=== PATIENT | male | born 1935 | race Caucasian/White ===

== ENCOUNTER 2019-10-23 20:35 | Inpatient (IN) | payer MEDICARE, MEDICAID ==
[~2019-10-23] VITALS: Ht 172.7 cm; Wt 81.3 kg
[~2019-10-23 20:35] MED LIST: ACET1TAB64 PO; ALBU2.5V11 NEB; ALBU90AE INH; ALEVE; ASPI-515 PO; ASPI-650 PO; ATOR10TA9 PO; CLOP75TA PO; CLOP75TA52 PO; ENAL2.5T PO; FLUTICASONE; FURO20TA3 PO; LOVA20TA2 PO; OXYcodone/APAP 5/325MG PO; PROAIR; TIOT18CA INH
--- NOTE | 2019-10-23 20:47 | NUR ---
Note undone in EDM - 10/23/19 at 2104 by [email or web address] pt REJI tx from [facility] as stemi alert. presented at 1830 for 05/01 substernal cp. nitro x2 relieved pain. 1 additional per ems. fluids infusing. Dr. Ponce at bedside for eval on arrival of pt. plan for labs/ct/ekg at bedside. pt aware and agrees. pt denies pain at the moment. exp wheezes throughout. 84% on RA on arrival to initial hosptial. 2.5 lnc at moment. NAD. awaiting lab results.
[2019-10-23 20:58] LABS: MEAN CORPUSCULAR HEMOGLOBIN 28.9 pg (27.5-34.5); MEAN CORPUSCULAR HGB CONC 32.7 g/dL (33.2-36.2); MEAN CORPUSCULAR VOLUME 88.5 fL (81-97); MEAN PLATELET VOLUME 7.6 fL (7.4-10.4); PLATELET COUNT 132 x10^3/uL (130-400); RED BLOOD COUNT 3.71 x10^6/uL (4.38-5.82); RED CELL DISTRIBUTION WIDTH 17.2 % (9.4-14.8)
--- NOTE | 2019-10-23 21:03 | NUR ---
pt ERJI yeager from [facility] as stemi alert. presented at 1830 for 05/01 substernal cp. nitro x2 relieved pain. 1 additional per ems. fluids infusing. Dr. Ponce at bedside for eval on arrival of pt. plan for labs/ct/ekg at bedside. pt aware and agrees. pt denies pain at the moment. exp wheezes throughout. 84% on RA on arrival to initial hosptial. 2.5 lnc at moment. NAD. awaiting lab results.
--- NOTE | 2019-10-23 21:05 | NUR ---
Pt returned from CT.
[2019-10-23 21:10] LABS: ALBUMIN 2.5 g/dL (3.4-5.0); ANION GAP 5 mmol/L (5-15); CALCIUM 8.3 mg/dL (8.5-10.1); CHLORIDE 108 mmol/L (98-107); CREATININE 1.75 mg/dL (0.7-1.3)
[2019-10-23 21:14] LABS: TROPONIN I < 0.015 ng/mL (0.000-0.045)
[2019-10-23] MEDS ORDERED: PRED10TA14 PO (21:42)
[2019-10-23 21:45] LABS: BASOPHILS # (AUTO) 0.01 x10^3/uL (0-0.1); BASOPHILS % (AUTO) 0 % (0-1); EOSINOPHILS # (AUTO) 0.09 x10^3/uL (0-0.4); EOSINOPHILS % (AUTO) 1 % (1-7); LYMPHOCYTES # (AUTO) 0.88 x10^3/uL (1-3.4); LYMPHOCYTES % (AUTO) 9 % (22-44); MD SCAN; MONOCYTES # (AUTO) 0.53 x10^3/uL (0.2-0.8); MONOCYTES % (AUTO) 5 % (2-9); NEUTROPHILS % (AUTO) 85 % (42-75)
[2019-10-23] MEDS ORDERED: OMNIPAQUE 350 MG/ML, 100ML BOTTLE ONE (21:56)
[2019-10-23] MEDS ORDERED: ALBUTEROL SULFATE 2.5 MG/3 ML NPPB SCH (22:00)
--- NOTE | 2019-10-23 22:05 | NUR ---
pt c/o SOB and asking for neb. notified . pt clear to eat, given water and turkey sandwhich. vss.
[2019-10-23] MEDS ORDERED: ALBUTEROL SULFATE 2.5 MG/3 ML ONE (22:07)
[2019-10-23] MEDS ORDERED: AZITHROMYCIN 500 MG TABLET PO ONE (22:30)
[2019-10-23] MEDS ORDERED: CEFTRIAXONE PMX 1GM/50ML 50 ML IVPB ONE (22:30)
[2019-10-23 23:00] VITALS: BP 123/62
[2019-10-23] MEDS ORDERED: ACETAMINOPHEN 325 MG TABLET PO PRN (23:00)
[2019-10-23] MEDS ORDERED: LABETALOL 5 MG/ML SYR. (IV ONLY) IVPush PRN (23:00)
[2019-10-23] MEDS ORDERED: NITROGLYCERIN 0.4 MG BOTTLE (25 TABS) SL PRN (23:00)
[2019-10-23] MEDS ORDERED: ONDANSETRON 2MG/ML, 2ML IVPush PRN (23:00)
[2019-10-23] MEDS ORDERED: morphine SULFATE 10 MG/ML, 1ML IVPush PRN (23:00)
[2019-10-23] MEDS: CEFTRIAXONE PMX 1GM/50ML 50 ML IV SCH (23:59)
[2019-10-23] MEDS: AZITHROMYCIN 500 MG in SODIUM CHLORIDE 0.9% 250 ML IV SCH (23:59)
[2019-10-24] MEDS ORDERED: HEPARIN 5,000 UNITS/ML, 1ML ONE (00:08)
[2019-10-24] MEDS ORDERED: ACETAMINOPHEN 325 MG TABLET ONE (00:09)
[2019-10-24] MEDS: HEPARIN 5,000 UNITS/ML, 1ML SQ SCH ×3 (00:11→18:03)
[2019-10-24 01:32] VITALS: BP 125/64
[2019-10-24 04:34] LABS: MEAN CORPUSCULAR HEMOGLOBIN 29.6 pg (27.5-34.5); MEAN CORPUSCULAR HGB CONC 33.3 g/dL (33.2-36.2); MEAN CORPUSCULAR VOLUME 88.9 fL (81-97); MEAN PLATELET VOLUME 7.9 fL (7.4-10.4); PLATELET COUNT 127 x10^3/uL (130-400); RED BLOOD COUNT 3.54 x10^6/uL (4.38-5.82); RED CELL DISTRIBUTION WIDTH 17.3 % (9.4-14.8)
[2019-10-24 04:46] LABS: CHLORIDE 109 mmol/L (98-107)
[2019-10-24 04:56] LABS: ANION GAP 6 mmol/L (5-15); CALCIUM 8.2 mg/dL (8.5-10.1); CHOL/HDL RATIO 2.8; CHOLESTEROL, TOTAL 108 mg/dL (140-239); CREATININE 1.69 mg/dL (0.7-1.3); HDL CHOL % 35 % (26-37); HDL CHOLESTEROL (DIRECT) 38 mg/dL (40-60); LDL CHOLESTEROL,CALCULATED 55 mg/dL (54-169); LDL/HDL RATIO 1.4 (0.5-3.0); TRIGLYCERIDES 75 mg/dL (50-200); TROPONIN I < 0.015 ng/mL (0.000-0.045); VLDL CHOLESTEROL 15 mg/dL (0-25)
[2019-10-24 06:00] LABS: BASOPHILS # (AUTO) 0.01 x10^3/uL (0-0.1); BASOPHILS % (AUTO) 0 % (0-1); EOSINOPHILS # (AUTO) 0.27 x10^3/uL (0-0.4); EOSINOPHILS % (AUTO) 3 % (1-7); LYMPHOCYTES # (AUTO) 1.26 x10^3/uL (1-3.4); LYMPHOCYTES % (AUTO) 13 % (22-44); MD SCAN; MONOCYTES # (AUTO) 0.65 x10^3/uL (0.2-0.8); MONOCYTES % (AUTO) 7 % (2-9); NEUTROPHILS # (AUTO) 7.29 x10^3/uL (1.8-6.8); NEUTROPHILS % (AUTO) 77 % (42-75)
[2019-10-24] MEDS: ALBUTEROL/IPRATROPIUM 2.5MG/0.5MG, 3 ML NPPB SCH ×5 (06:55→23:27)
[2019-10-24] MEDS: SENNA/DOCUSATE TABLET PO SCH (09:00)
[2019-10-24] MEDS ORDERED: ENALAPRIL 2.5MG TABLET PO SCH (09:00)
[2019-10-24] MEDS: SODIUM CHLORIDE 0.9% 1,000 ML IV SCH ×2 (09:30→18:07)
[2019-10-24 09:33] VITALS: BP 126/61
[2019-10-24] MEDS: ASPIRIN 81 MG TABLET EC PO SCH (10:16)
[2019-10-24] MEDS: CLOPIDOGREL 75 MG TABLET PO SCH (10:16)
[2019-10-24] MEDS: methylPREDNISolone SOD SUCC 125 MG/2 ML IVPush SCH ×2 (10:47→18:02)
[2019-10-24 11:05] LABS: TROPONIN I < 0.015 ng/mL (0.000-0.045)
[2019-10-24] MEDS: GUAIFENESIN 200 MG TABLET PO SCH ×3 (12:40→21:59)
[2019-10-24 16:29] VITALS: BP 126/62
[2019-10-24 16:50] LABS: RAPID INFLUENZA A Negative (Negative); RAPID INFLUENZA B Negative (Negative)
[2019-10-24 19:35] VITALS: BP 123/56
[2019-10-24] MEDS: BRIMONIDINE TART. OPHTH 0.2%, 5ML LEFTEYE SCH (21:56)
[2019-10-24] MEDS: LATANOPROST OPHTH 0.005%, 2.5ML LEFTEYE SCH (21:56)
[2019-10-24] MEDS: LOVASTATIN 20 MG TABLET PO SCH (21:59)
[2019-10-25] MEDS: CEFTRIAXONE PMX 1GM/50ML 50 ML IV SCH ×2 (00:04→22:42)
[2019-10-25] MEDS: methylPREDNISolone SOD SUCC 125 MG/2 ML IVPush SCH ×5 (00:04→22:42)
[2019-10-25] MEDS: AZITHROMYCIN 500 MG in SODIUM CHLORIDE 0.9% 250 ML IV SCH ×2 (01:13→23:36)
[2019-10-25 01:14] VITALS: BP 134/65
[2019-10-25] MEDS: HEPARIN 5,000 UNITS/ML, 1ML SQ SCH ×3 (01:59→18:27)
[2019-10-25] MEDS: GUAIFENESIN 200 MG TABLET PO SCH ×4 (05:22→20:12)
[2019-10-25] MEDS: SODIUM CHLORIDE 0.9% 1,000 ML IV SCH ×2 (05:22→17:59)
[2019-10-25 06:04] LABS: ALBUMIN 2.4 g/dL (3.4-5.0); ANION GAP 8 mmol/L (5-15); CALCIUM 8.4 mg/dL (8.5-10.1); CHLORIDE 109 mmol/L (98-107)
[2019-10-25 06:07] LABS: ALANINE AMINOTRANSFERASE 17 U/L (12-78); ALKALINE PHOSPHATASE 107 U/L (45-117); BILIRUBIN,TOTAL 0.3 mg/dL (0.2-1.0); CREATININE 1.34 mg/dL (0.7-1.3); TOTAL PROTEIN 6.1 g/dL (6.4-8.2)
[2019-10-25] MEDS: ALBUTEROL/IPRATROPIUM 2.5MG/0.5MG, 3 ML NPPB SCH ×4 (07:55→20:24)
[2019-10-25] MEDS: LATANOPROST OPHTH 0.005%, 2.5ML LEFTEYE SCH ×2 (09:00→20:11)
[2019-10-25 09:25] VITALS: BP 113/48
[2019-10-25] MEDS ORDERED: TRAZODONE 50MG TABLET PO PRN (10:00)
[2019-10-25] MEDS: CLOPIDOGREL 75 MG TABLET PO SCH (10:20)
[2019-10-25] MEDS: SENNA/DOCUSATE TABLET PO SCH (10:20)
[2019-10-25] MEDS: ASPIRIN 81 MG TABLET EC PO SCH (10:20)
[2019-10-25] MEDS: TIMOLOL OPHTH 0.5%, 5ML LEFTEYE SCH (11:41)
[2019-10-25 16:30] VITALS: BP 141/73
[2019-10-25] MEDS: LOVASTATIN 20 MG TABLET PO SCH (20:11)
[2019-10-25] MEDS: BRIMONIDINE TART. OPHTH 0.2%, 5ML LEFTEYE SCH (20:11)
[2019-10-25 20:59] VITALS: BP 150/72
[2019-10-26 00:51] VITALS: BP 103/51
[2019-10-26] MEDS: HEPARIN 5,000 UNITS/ML, 1ML SQ SCH ×2 (03:15→10:30)
[2019-10-26] MEDS: methylPREDNISolone SOD SUCC 125 MG/2 ML IVPush SCH (03:15)
[2019-10-26] MEDS: GUAIFENESIN 200 MG TABLET PO SCH ×2 (05:04→11:03)
[2019-10-26 06:21] LABS: ALANINE AMINOTRANSFERASE 43 U/L (12-78); ALBUMIN 2.4 g/dL (3.4-5.0); ANION GAP 7 mmol/L (5-15); CALCIUM 8.6 mg/dL (8.5-10.1); CHLORIDE 112 mmol/L (98-107); CREATININE 1.31 mg/dL (0.7-1.3)
[2019-10-26 06:24] LABS: ALKALINE PHOSPHATASE 98 U/L (45-117); BILIRUBIN,TOTAL 0.2 mg/dL (0.2-1.0); TOTAL PROTEIN 5.9 g/dL (6.4-8.2)
[2019-10-26] MEDS: SODIUM CHLORIDE 0.9% 1,000 ML IV SCH (06:43)
[2019-10-26] MEDS: ALBUTEROL/IPRATROPIUM 2.5MG/0.5MG, 3 ML NPPB SCH ×2 (07:30→11:40)
[2019-10-26] MEDS: CLOPIDOGREL 75 MG TABLET PO SCH (08:00)
[2019-10-26] MEDS: ASPIRIN 81 MG TABLET EC PO SCH (08:00)
[2019-10-26] MEDS: TIMOLOL OPHTH 0.5%, 5ML LEFTEYE SCH (08:01)
[2019-10-26] MEDS: SENNA/DOCUSATE TABLET PO SCH (08:04)
[2019-10-26] MEDS: LATANOPROST OPHTH 0.005%, 2.5ML LEFTEYE SCH (08:04)
[2019-10-26 08:10] VITALS: BP 161/67
[2019-10-26] MEDS ORDERED: CEFDINIR 300 MG CAPSULE PO SCH (08:30)
[2019-10-26] MEDS ORDERED: methylPREDNISolone SOD SUCC 125 MG/2 ML IVPush SCH (08:30)
[2019-10-26 08:31] VITALS: BP 166/87
[2019-10-26] MEDS ORDERED: DOXYCYCLINE 100MG TABLET PO SCH (09:00)
[2019-10-26] MEDS ORDERED: GUAI200T37 PO (10:33)
[2019-10-26] MEDS ORDERED: DOXY100T PO (10:33)
[2019-10-26] MEDS ORDERED: CEFD300C37 PO (10:33)
[2019-10-26] MEDS ORDERED: BUDE10.2 INH (10:34)
[2019-10-26] MEDS ORDERED: PRED20TA PO (12:14)
== END 2019-10-26 12:30 | disposition home health service (06) | DRG 193 ==
LOC: ED 21:02 → EDIP 21:57 → 5SO 23:02 → DCLOUNGE 10-26 12:10
PROVIDERS: ADMIT Family Medicine; ATTEND Family Medicine
DX: J18.9 Pneumonia, unspecified organism (principal); J96.01 Acute respiratory failure with hypoxia; J44.0 Chronic obstructive pulmonary disease with (acute) lower respiratory infection; N17.9 Acute kidney failure, unspecified; J44.1 Chronic obstructive pulmonary disease with (acute) exacerbation; Z88.0 Allergy status to penicillin; D64.9 Anemia, unspecified; E78.5 Hyperlipidemia, unspecified; F17.210 Nicotine dependence, cigarettes, uncomplicated; G47.00 Insomnia, unspecified; G89.29 Other chronic pain; I10 Essential (primary) hypertension; I44.7 Left bundle-branch block, unspecified; I73.9 Peripheral vascular disease, unspecified; M19.90 Unspecified osteoarthritis, unspecified site; Z82.3 Family history of stroke; Z86.73 Personal history of transient ischemic attack (TIA), and cerebral infarction without residual deficits; Z95.2 Presence of prosthetic heart valve
CPT/HCPCS: 36415; 71275; 80048; 80053; 80061; 82040; 83605; 84443; 84484; 85025; 87040; 87400; 93005; 93306; 94640; G0378; J0456; J0696; J1644; J7613; J7620; Q9967; J2930; J7030; J7050

== ENCOUNTER 2020-07-21 12:42 | Inpatient (IN) | payer MEDICARE, MEDICAID ==
[~2020-07-21] VITALS: Ht 167.6 cm; Wt 83.2 kg
[~2020-07-21 12:42] MED LIST changes: +ALBU4TAB3 PO; +ALEVE PM; +ASPI81TA45 PO; +ATOR40TA78 PO; +BRIM5DRO4 LEFTEYE; +BRIMONIDINE; +BUDE10.2 INH; +CARV3.1212 PO; +CARV6.2512 PO; +CEFD300C37 PO; +DORZ10DR27 LEFTEYE; +DORZOLAMIDE; +DOXY100T PO; +FLUT15.845 NAS; +FURO10VI37 IV; +GUAI200T37 PO; +LATA7.5D LEFTEYE; +LATANOPROST; +NAPR1TAB25 PO; +OCUVITE; +PRED10TA PO; +PRED10TA14 PO; +PRED20TA PO; +ROPI1TAB4 PO; +TIMO5DRO33 LEFTEYE; +VIT1TABL32 PO; +[UNRECOGNIZED DRUG - OTHER]
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
[2020-07-21] MEDS ORDERED: ALBUTEROL/IPRATROPIUM 2.5MG/0.5MG, 3 ML NPPB ONE (13:00)
[2020-07-21] MEDS ORDERED: SODIUM CHLORIDE FLUSH 10ML SYR IVF ONE (13:00)
[2020-07-21] MEDS ORDERED: PLEASE ENTER HEIGHT AND WEIGHT MC SCH (13:00)
[2020-07-21 13:08] LABS: BASOPHILS # (AUTO) 0.08 x10^3/uL (0-0.1); BASOPHILS % (AUTO) 1 % (0-1); EOSINOPHILS # (AUTO) 0.18 x10^3/uL (0-0.4); EOSINOPHILS % (AUTO) 3 % (1-7); LYMPHOCYTES % (AUTO) 23 % (22-44); MD NO; MEAN CORPUSCULAR HEMOGLOBIN 27.2 pg (27.5-34.5); MEAN CORPUSCULAR HGB CONC 32.4 g/dL (33.2-36.2); MEAN CORPUSCULAR VOLUME 84.1 fL (81-97); MEAN PLATELET VOLUME 7.6 fL (7.4-10.4); MONOCYTES # (AUTO) 0.41 x10^3/uL (0.2-0.8); MONOCYTES % (AUTO) 6 % (2-9); NEUTROPHILS # (AUTO) 4.34 x10^3/uL (1.8-6.8); NEUTROPHILS % (AUTO) 67 % (42-75); PLATELET COUNT 206 x10^3/uL (130-400); RED BLOOD COUNT 4.34 x10^6/uL (4.38-5.82); RED CELL DISTRIBUTION WIDTH 17.6 % (9.4-14.8)
[2020-07-21 13:15] LABS: ALANINE AMINOTRANSFERASE 24 U/L (12-78); ALBUMIN 3.3 g/dL (3.4-5.0); ANION GAP 7 mmol/L (5-15); CALCIUM 8.8 mg/dL (8.5-10.1); CHLORIDE 102 mmol/L (98-107); CREATININE 1.85 mg/dL (0.7-1.3)
[2020-07-21] MEDS ORDERED: ALBUTEROL/IPRATROPIUM 2.5MG/0.5MG, 3 ML ONE (13:16)
[2020-07-21 13:19] LABS: ALKALINE PHOSPHATASE 167 U/L (45-117); BILIRUBIN,TOTAL 0.4 mg/dL (0.2-1.0); TOTAL PROTEIN 6.7 g/dL (6.4-8.2); TROPONIN I 0.026 ng/mL (0.000-0.045)
--- NOTE | 2020-07-21 13:31 | NUR ---
DUO NEB TREATMENT STARTED.
--- NOTE | 2020-07-21 13:46 | NUR ---
FAMILY AT BEDSIDE. REORT TO DARRELL SOTELO
--- NOTE | 2020-07-21 13:50 | NUR ---
KOBY SHERIDAN AT BEDSIDE FOR EVALUATION
--- NOTE | 2020-07-21 14:44 | NUR ---
KOBY SHERIDAN NOTIFIED OT PATIENTS DISCOMFORT
[2020-07-21] MEDS ORDERED: HYDROcodone/APAP 5/325 TABLET ONE (14:46)
[2020-07-21] MEDS ORDERED: HYDROcodone/APAP 5/325 TABLET PO ONE (15:00)
--- NOTE | 2020-07-21 15:14 | NUR ---
HOSPITALIST AT BEDSIDE.
[2020-07-21] MEDS: HEPARIN 5,000 UNITS/ML, 1ML SQ SCH (15:30)
[2020-07-21] MEDS ORDERED: ENALAPRIL 2.5MG TABLET PO PRN (15:30)
[2020-07-21] MEDS ORDERED: SENNA/DOCUSATE TABLET PO PRN (15:30)
[2020-07-21] MEDS ORDERED: FUROSEMIDE 40 MG/4 ML IV ONE (15:30)
[2020-07-21] MEDS ORDERED: POLYETHYLENE GLYCOL 17 GM PACKET PO PRN (15:30)
[2020-07-21] MEDS ORDERED: ACETAMINOPHEN 325 MG TABLET PO PRN (15:30)
[2020-07-21] MEDS ORDERED: ONDANSETRON ODT 4 MG PO PRN (15:30)
[2020-07-21] MEDS ORDERED: ONDANSETRON 2MG/ML, 2ML IVPush PRN (15:30)
[2020-07-21] MEDS ORDERED: FUROSEMIDE 40 MG/4 ML ONE (15:42)
[2020-07-21] MEDS ORDERED: HEPARIN 5,000 UNITS/ML, 1ML ONE (15:43)
--- NOTE | 2020-07-21 15:46 | NUR ---
PER [facility] EV ELIZABETH HOLD HEPARIN SQ
--- NOTE | 2020-07-21 16:44 | NUR ---
ASSISTANCE PROVIDED FOR BEDSIDE COMMODE.
[2020-07-21] MEDS ORDERED: POTASSIUM CHLORIDE 20 MEQ TAB.ER.PRT ONE (17:06)
[2020-07-21] MEDS: POTASSIUM CHLORIDE 20 MEQ TAB.ER.PRT PO SCH (17:08)
[2020-07-21] MEDS: ALBUTEROL HFA 90 MCG/SPRAY INH SCH ×2 (17:08→21:00)
[2020-07-21] MEDS ORDERED: CARVEDILOL 12.5 MG TABLET ONE (17:39)
[2020-07-21] MEDS: CARVEDILOL 6.25 MG TABLET PO SCH (17:41)
--- NOTE | 2020-07-21 18:19 | NUR ---
REPORT CALLED TO JT. PT AWARE OF POC
[2020-07-21 18:23] LABS: TROPONIN I < 0.015 ng/mL (0.000-0.045)
[2020-07-21] MEDS ORDERED: ATORVASTATIN 40 MG TABLET PO SCH (21:00)
[2020-07-21] MEDS: ROPINIROLE 1MG TABLET PO SCH (21:01)
[2020-07-22] VITALS: BP 147/81
[2020-07-22] MEDS: HEPARIN 5,000 UNITS/ML, 1ML SQ SCH ×2 (00:45→07:30)
[2020-07-22] MEDS: ALBUTEROL HFA 90 MCG/SPRAY INH SCH ×3 (01:00→07:34)
[2020-07-22 01:08] LABS: TROPONIN I < 0.015 ng/mL (0.000-0.045)
[2020-07-22] MEDS: CARVEDILOL 6.25 MG TABLET PO SCH (05:24)
[2020-07-22 06:57] VITALS: BP 143/71
[2020-07-22] MEDS: POTASSIUM CHLORIDE 20 MEQ TAB.ER.PRT PO SCH (07:33)
[2020-07-22] MEDS: ROPINIROLE 1MG TABLET PO SCH (08:15)
[2020-07-22 08:59] LABS: BASOPHILS # (AUTO) 0.03 x10^3/uL (0-0.1); BASOPHILS % (AUTO) 0 % (0-1); EOSINOPHILS % (AUTO) 0 % (1-7); LYMPHOCYTES # (AUTO) 1.11 x10^3/uL (1-3.4); LYMPHOCYTES % (AUTO) 14 % (22-44); MD NO; MEAN CORPUSCULAR HEMOGLOBIN 27.5 pg (27.5-34.5); MEAN CORPUSCULAR HGB CONC 32.5 g/dL (33.2-36.2); MEAN CORPUSCULAR VOLUME 84.7 fL (81-97); MONOCYTES % (AUTO) 5 % (2-9); NEUTROPHILS # (AUTO) 6.65 x10^3/uL (1.8-6.8); NEUTROPHILS % (AUTO) 81 % (42-75); PLATELET COUNT 196 x10^3/uL (130-400); RED BLOOD COUNT 4.33 x10^6/uL (4.38-5.82); RED CELL DISTRIBUTION WIDTH 17.6 % (9.4-14.8)
[2020-07-22] MEDS ORDERED: CLOPIDOGREL 75 MG TABLET PO SCH (09:00)
[2020-07-22] MEDS ORDERED: TIOTROPIUM BROMIDE 18 MCG/INH INH SCH (09:00)
[2020-07-22] MEDS ORDERED: ALLOPURINOL 100 MG TABLET PO SCH (09:00)
[2020-07-22 09:03] LABS: ANION GAP 4 mmol/L (5-15); CALCIUM 9.1 mg/dL (8.5-10.1); CHLORIDE 102 mmol/L (98-107); CREATININE 1.96 mg/dL (0.7-1.3)
[2020-07-22] MEDS ORDERED: ALLO100T30 PO (09:24)
[2020-07-22] MEDS ORDERED: ENAL2.5T PO (09:24)
[2020-07-22] MEDS ORDERED: PRED20TA PO (09:24)
[2020-07-22] MEDS ORDERED: FURO40TA6 PO (09:24)
== END 2020-07-22 11:19 | disposition home or self-care (01) | DRG 73 ==
LOC: ED 13:30 → EDIP 14:10 → 5SO 18:45 → DCLOUNGE 07-22 11:11
PROVIDERS: ADMIT Internal Medicine; ATTEND Family Medicine
DX: G56.12 Other lesions of median nerve, left upper limb (principal); I50.33 Acute on chronic diastolic (congestive) heart failure; I13.0 Hypertensive heart and chronic kidney disease with heart failure and stage 1 through stage 4 chronic kidney disease, or unspecified chronic kidney disease; J44.1 Chronic obstructive pulmonary disease with (acute) exacerbation; J96.11 Chronic respiratory failure with hypoxia; M77.9 Enthesopathy, unspecified; E87.6 Hypokalemia; G25.81 Restless legs syndrome; I25.10 Atherosclerotic heart disease of native coronary artery without angina pectoris; I44.7 Left bundle-branch block, unspecified; I73.9 Peripheral vascular disease, unspecified; M10.9 Gout, unspecified; H54.40 Blindness, one eye, unspecified eye; N18.3 Chronic kidney disease, stage 3 (moderate); R94.31 Abnormal electrocardiogram [ECG] [EKG]; Z87.891 Personal history of nicotine dependence; Z95.2 Presence of prosthetic heart valve; I25.2 Old myocardial infarction; Z95.5 Presence of coronary angioplasty implant and graft; Z88.0 Allergy status to penicillin
CPT/HCPCS: 36415; 71045; 80048; 80053; 83605; 83735; 83880; 84484; 85025; 93005; 94640; 96374; 99285; G0378; J1644; J1940; J7512